=== PATIENT | female | born 1980 | race Caucasian/White ===

== ENCOUNTER 2017-04-08 11:23 | Emergency (ER) | payer OTHER ==
[~2017-04-08] VITALS: Ht 172.7 cm; Wt 72.8 kg
[~2017-04-08 11:23] MED LIST: BCPILLS PO
[2017-04-08 11:35] VITALS: Ht 172.7 cm; Wt 72.8 kg
[2017-04-08] MEDS ORDERED: PRENTAB26 PO (11:43)
[2017-04-08] MEDS ORDERED: CITA40TA12 PO (11:43)
[2017-04-08 12:00] VITALS: BP 122/86; PULSE 98; TEMP 37; O2SAT 98
[2017-04-08] MEDS ORDERED: AMOX500T3 PO (12:12)
[2017-04-08] MEDS ORDERED: HYDR-5688 PO (12:12)
[2017-04-08] MEDS ORDERED: CPROT OP (12:12)
--- NOTE | 2017-04-08 12:14 | EMERGENCY ROOM VISIT NOTE ---
History First contact with patient: 11:41 Chief Complaint: EAR PAIN Stated Complaint: COLD,EAR PAIN,BLOOD AND FLUID DRAINING FROM EAR History of Present Illness The patient is a 37 year old female who presents to the Emergency Room with complaints of ear pain and drainage. The patient reports that she has had cold symptoms for the past one week. She states that she has had pain in her ear for the past 24 hours. This morning, she has noticed drainage from the ear which is slightly blood-tinged. She rates her discomfort an 8/10. She denies any fevers or cough. She does report a history of ear problems. Review of Systems A complete 10 point review of systems was reviewed with the patient with pertinent positives and negatives as per history of present illness. All else were negative. Past Medical/Surgical History Medical Problems: (1) Anxiety State Nos Social History Problems: (1) Panic Disorder Without Agoraphobia Social History Smoking Status: Never Smoker Alcohol Use: occasionally Drug Use: none Marital Status: Housing Status: lives with family Occupation Status: employed Current/Historical Medications Scheduled Amoxicillin (Amoxil), 500 MG PO TID Ciprofloxacin-Hydrocortisone (Cipro Hc Otic), 3 DROPS OP BID Citalopram Hydrobromide (Celexa), 40 MG PO DAILY Multivit/Min/Iron/Fol Ac/Pren ( Vitamin), 1 TAB PO DAILY Scheduled PRN Hydrocodone/Acetaminophen 5MG/325MG ([place] 5MG/325MG), 1-2 TABLET PO Q4H PRN for Pain Physical Exam Vital Signs Date Time Temp Pulse Resp B/P (MAP) Pulse Ox O2 Delivery O2 Flow Rate FiO2 04/08/17 12:00 37.0 98 16 122/86 98 04/08/17 11:35 37.0 98 16 122/86 98 Room Air Physical Exam VITALS: Vitals are noted on the nurse's note and reviewed by myself. Vital signs stable. GENERAL: This is a 37-year-old female, in no acute distress, nondiaphoretic, well-developed well-nourished. SKIN: The skin was without rashes. EARS: The left external auditory canal is clear and tympanic membrane is minimally injected. There is puslike drainage in the right external auditory canal and tympanic membrane appears to be slightly perforated at the inferior aspect. EYES: Pupils equal round and reactive to light and accommodation. Conjunctivae without injection, sclerae without icterus. MOUTH: Mucous membranes moist. Tonsils are not enlarged. Pharynx without erythema or exudate. NECK: Supple without nuchal rigidity. No lymphadenopathy. HEART: Regular rate and rhythm without murmurs gallops or rubs. LUNGS: Clear to auscultation bilaterally without wheezes, rales or rhonchi. NEURO: Patient was alert and oriented to person place and time. Medical Decision & Procedures Medical Decision The patient was evaluated as above. Exam is consistent with right otitis media with perforation. Patient will be placed on amoxicillin and ciprofloxacin drops. Conservative measures were discussed. She requested something for pain and was given a prescription for a very small amount of [place]. She was instructed to follow-up with her primary care provider. She verbalized understanding and was discharged home in good condition. Medication Reconcilliation Current Medication List: was personally reviewed by me Blood Pressure Screening Patient's blood pressure: Normal blood pressure Impression Primary Impression: Acute otitis media of right ear with perforation Departure Information Dispostion Home / Self-Care Condition GOOD Prescriptions Hydrocodone/Acetaminophen 5MG/325MG ([place] 5MG/325MG) Tab 1-2 TABLET PO Q4H Y for Pain, #8 TAB For Initial Treatment Prov: Tarsha Zaman PA-C 04/08/17 Ciprofloxacin-Hydrocortisone (CIPRO HC OTIC) 1 Michelle Michelle 3 DROPS OP BID for 10 Days, #1 BTL Prov: Tarsha Zaman PA-C 04/08/17 Amoxicillin (AMOXIL) 500 Mg Tab 500 MG PO TID for 10 Days, #30 TAB Prov: Tarsha Zaman PA-C 04/08/17 Referrals Belkis Pérez M.D. (PCP) Patient Instructions [facility] Additional Instructions You have been treated in the Emergency Department for an Inner Ear Infection ( Otitis Media) with a small perforation of your ear drum. You were prescribed amoxicillin to be taken as prescribed. This is an antibiotic. All antibiotics have the potential to cause diarrhea. Stop this medication and contact a medical provider if you were to develop any significant adverse side effects including: wheezing, shortness of breath, passing out, vomiting, or a diffuse rash. Always take antibiotics as directed and COMPLETE the ENTIRE course regardless of the improvement of your symptoms. Use the ciprofloxacin drops in the ear as prescribed. You have been prescribed [place] to be used for pain control. Take 1-2 tablets every 4-6 hours as needed for pain. This is a narcotic medication. You cannot drive or consume alcohol while on this medicine. This medicine should only be used for pain that cannot be controlled with [id number]-[id number] pain medicines. For pain and fever control, you can use the following [id number] medicines (if >12 yo): - Regular strength (325mg/tab) Tylenol (acetaminophen) 2 tabs every 4-6 hours as needed. Do not exceed 12 tablets in a 24 hour period. Avoid taking more than 4 grams (4000 mg) of Tylenol per day. This includes any other sources of acetaminophen you may take on a regular basis. - Regular strength (200 mg/tab) Advil (ibuprofen) 1-2 tabs every 4-6 hours as needed. Do not exceed a dose of 3200 mg per day. You should follow-up with your Primary Care Provider from today's Emergency Department visit. Return to the emergency department if you develop the following symptoms despite treatment course outlined above: headache, fever, intractable pain, increased redness, swelling, or purulent discharge.
== END 2017-04-08 12:00 | disposition home or self-care (01) ==
LOC: C.EDB 11:25 → C.EDD 12:00
DX: H66.91 Otitis media, unspecified, right ear (principal); H72.91 Unspecified perforation of tympanic membrane, right ear; F41.0 Panic disorder [episodic paroxysmal anxiety]; Z79.899 Other long term (current) drug therapy

== ENCOUNTER → 2017-04-20 | Outpatient (CLI) | payer OTHER ==
[~2017-04-20] MED LIST changes: +AMOX500T3 PO; -BCPILLS PO; +CITA40TA12 PO; +HYDR-5688 PO; +PRENTAB26 PO
--- NOTE | 2017-04-20 11:43 | DIAGNOSTIC IMAGING REPORT ---
HYSTEROSALPINGOGRAM CLINICAL HISTORY: N97.9 infertility COMPARISON STUDY: No previous studies for comparison. FINDINGS: 24 seconds of fluoroscopic time was utilized. 5 fluoroscopic spot images were acquired. Both fallopian tubes filled a normal fashion. There is free spillage bilaterally. IMPRESSION: Both fallopian tubes are patent. Electronically signed by: Irvin Garcia M.D. 04/20/2017 11:42 AM Dictated Date/Time: 04/20/2017 11:41 AM
--- NOTE | 2017-04-20 12:04 | Progress Note ---
Progress Note Date of Service Apr 20, 2017. Progress Note Pt seen and identified HSG done without difficulty pt tolerated procedure well disch hoe with instruction
== END | disposition home or self-care (01) ==
LOC: C.RAD 11:05
PROVIDERS: ATTEND Obstetrics & Gynecology
DX: N97.9 Female infertility, unspecified (principal)